=== PATIENT | male | born 1965 | race American Indian/Alaskan Native ===

== ENCOUNTER 2021-02-12 05:54 | Emergency (ER) | payer SELFPAY ==
[2021-02-12] MEDS ORDERED: ONDANSETRON 4 MG ODT TAB PO ONE (06:11)
[2021-02-12] MEDS ORDERED: IBUPROFEN 600 MG TAB PO ONE (06:11)
[2021-02-12] MEDS ORDERED: oxyCODONE /ACETAMINOPHEN 5-325MG TAB PO ONE (06:11)
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
--- NOTE | 2021-02-12 06:57 | XRay Report ---
RIGHT ANKLE 3 VIEWS 0629 INDICATION: Crush injury to foot COMPARISON: None available. FINDINGS: Prominent tarsal degenerative changes are seen. Ankle degenerative changes are noted. Promi nent posterior and inferior calcaneal spurring are noted. No fractures or dislocations are seen. RIGHT FOOT 3 VIEWS 0631 INDICATION: Traumatic injury COMPARISON: None available. FINDINGS: Prominent soft tissue swelling is seen in the distal foot dorsally and ventrally. Soft tiss ue gas is noted dorsally and ventrally in the distal foot and the second and third toes. Comminuted f racture is seen transversely through the base of the proximal phalanx of the little toe with lateral displacement and medial angulation. There is also a fracture of the medial base of the proximal phala nx of the second toe with mild medial displacement. Transverse fracture through the tuft of the dista l phalanx of the second toe is noted with distal distraction. Prominent soft tissue laceration is see n of the second and third toes. Prominent tarsal degenerative changes are seen. Ankle degenerative changes are noted. Prominent poste rior and inferior calcaneal spurring are seen. Signer Name: Mendez Gonzalez MD Signed: 02/12/2021 6:52 AM Workstation Name: [id number]
[2021-02-12] MEDS ORDERED: TETANUS,DIPH,PERTUSS(ACELL) VACCINE 0.5 ML SYRINGE IM ONE (07:10)
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
[2021-02-12 08:50] LABS: BUN/Creatinine Ratio 21; Blood Urea Nitrogen 19 mg/dL (9-20); Calcium 9.1 mg/dL (8.4-10.2); Hemolysis Index 4
[2021-02-12 09:22] VITALS: BP 150/74
[2021-02-12 09:59] LABS: Hematocrit 34.7 % (35.5-45.6); Hemoglobin 11.8 gm/dl (11.8-15.2); Mean Corpuscular HGB Conc 34 % (32-34); Mean Corpuscular Volume 82 fl (84-94); Platelet Count 286 K/mm3 (140-440); Red Blood Count 4.23 M/mm3 (3.65-5.03)
== END 2021-02-12 09:23 ==
LOC: ED 05:54
DX: S92.511B Displaced fracture of proximal phalanx of right lesser toe(s), initial encounter for open fracture (principal); W23.0XXA Caught, crushed, jammed, or pinched between moving objects, initial encounter; Y93.89 Activity, other specified; Y92.89 Other specified places as the place of occurrence of the external cause; Y99.8 Other external cause status
CPT/HCPCS: 36415; 73610; 73630; 80048; 85027; 90471; 90715; 96365; 99285; J0690; Q0162